=== PATIENT | male | born 1955 | race Caucasian/White ===

== ENCOUNTER → 2021-08-29 09:49 | Outpatient (CLI) | payer OTHER, SELFPAY ==
--- NOTE | 2021-08-29 09:53 | DI.RAD.S_ITS ---
PROCEDURE: XR WRIST RT MIN 3V INDICATIONS: fall TECHNIQUE: 4 views of the wrist were acquired. COMPARISON: [facility], CR, XR HAND RT MIN 3V, 08/29/2021, 9:45. FINDINGS: Bones: Minimally corticated and displaced fracture of the distal radius. This includes vertical fracture fragment along the dorsal aspect of the distal radius as well as a transverse fracture of the metaphysis. There is minimal displacement with mild dorsal angulation. No suspicious bony lesions. Nondisplaced fracture of the ulnar styloid. Scaphoid view: No scaphoid fracture. Soft tissues: Soft tissue swelling throughout the wrist. IMPRESSION: Minimally comminuted, displaced and angulated fracture of the distal radius as well as a nondisplaced fracture of the ulnar styloid. Dictated by: Yevgeniy Wood D.O. on 08/29/2021 at 9:18 Approved by: Yevgeniy Wood D.O. on 08/29/2021 at 9:20
--- NOTE | 2021-08-29 09:53 | DI.RAD.S_ITS ---
PROCEDURE: XR HAND RT MIN 3V INDICATIONS: fall TECHNIQUE: 3 views of the hand(s) acquired. COMPARISON: None. FINDINGS: Bones: There is osseous demineralization. There is a nondisplaced fracture of the ulnar styloid. Minimally displaced and angulated fracture of the distal radius. No dislocation. Mild degenerative changes of the hand most prominent of the 1st metacarpophalangeal joint. Carpal bones are normally aligned. No suspicious bony lesions. Soft tissues: No suspicious soft tissue calcifications. Soft tissue swelling of the wrist. IMPRESSION: Minimally displaced and angulated fracture of the distal radius incompletely evaluated. Nondisplaced fracture of the ulnar styloid. Mild degenerative changes worse at the 1st metacarpophalangeal joint. Dictated by: Yevgeniy Wood D.O. on 08/29/2021 at 9:15 Approved by: Yevgeniy Wood D.O. on 08/29/2021 at 9:18
== END ==
PROVIDERS: Referring Provider Physician Assistant; Visit Provider Physician Assistant
DX: S52.501A Unspecified fracture of the lower end of right radius, initial encounter for closed fracture (principal); S52.614A Nondisplaced fracture of right ulna styloid process, initial encounter for closed fracture; R60.9 Edema, unspecified; W19.XXXA Unspecified fall, initial encounter
CPT/HCPCS: 73110; 73130

== ENCOUNTER 2023-11-09 10:25 | Day surgery (SDC) | payer MEDICARE, OTHER, SELFPAY ==
[2023-11-09 11:05] VITALS: BP 134/77; PULSE 82; RESP 14; TEMP 36.6; O2SAT 99
--- NOTE | 2023-11-09 11:27 | P.HP_ITS ---
History of Present Illness History of Present Illness Date Patient Seen: 11/09/23 Time Patient Seen: 11:28 Chief complaint: Colonoscopy Narrative: Joel is a 68-year-old man here for colonoscopy. His last one was greater than 10 years ago. No family history of colon cancer. [facility] Social History Smoking Status: Never smoker alcohol intake: current Meds Home Medications and Allergies Home Medications Medication Instructions Recorded Confirmed Type [MYCILLIUM] Q DAY ##0 05/02/16 08/29/21 History cyanocobalamin (vitamin B-12) 5,000 mcg sublingual Q DAY ##0 05/02/16 11/09/23 History 5,000 mcg sublingual tablet (Vitamin B-12) ferrous gluconate 236 mg (27 mg 236 mg PO Q DAY ##0 05/02/16 11/09/23 History iron) tablet sodium,potassium,mag sulfates 17.5 See Rx Instructions PO .COMPLEX 10/04/23 Rx gram-3.13 gram-1.6 gram oral soln #354 mL (Suprep Bowel Prep Kit) Allergies Allergy/AdvReac Type Severity Reaction Status Date / Time No Known Drug Allergies Allergy Verified 11/09/23 11:10 Exam Vital Signs (past 8 hours): - 11/09/23 11:05 Temperature 98 F Pulse Rate 82 Respiratory Rate 14 Blood Pressure 134/77 Pulse Oximetry 99 Oxygen Delivery Method Room Air Oxygen Delivery Method Room Air Const General: healthy appearing Resp Effort & Inspection: normal respiratory effort Assessment & Plan Assessment and plan (1) Colon cancer screening: Status: Acute Plan We reviewed the risks and benefits of colonoscopy for colon cancer screening and he would like to proceed. Time-Based Coding :: [TOTAL MINUTES] spent with patient and on the chart (including review of chart, obtaining history, exam, reviewing outside data, placing orders, documenting exam and treatment plan, and counseling patient) on [DATE].
[2023-11-09 12:34] VITALS: BP 107/67; PULSE 70; RESP 14; TEMP 36.6; O2SAT 96
--- NOTE | 2023-11-09 12:34 | PM.OP.COLON ---
Operative Date/Time/Diagnoses Date of procedure: 11/09/23 Time of procedure: 12:34 Pre-op diagnosis: Colon cancer screening Post-op diagnosis: same Procedure & Clinicians Study performed: Colonoscopy Surgeon: Tone Stratton Procedure Notes Procedure in detail: Surgeon: Tone Stratton MD Anesthesia: Ana Anaya MD Procedure: The patient was brought to the endoscopy suite, placed in left lateral decubitus position. The patient was connected to monitoring devices. A time-out was performed. Sedation was administered. Once the patient was adequately sedated, a digital rectal exam was performed and was normal. The scope was then inserted and advanced to the cecum where the appendiceal orifice was identified and photographed. The scope was then slowly withdrawn over greater than 6 minutes. The mucosa was thoroughly inspected. No abnormalities were seen. The scope was retroflexed in the rectum. The scope was straightened and removed. The patient was awakened and brought to recovery. Scope withdrawal time: 7 minutes Sedation time: 11 minutes EBL: 0 Findings: Normal colon Post-procedure Recommendations: Colonoscopy in 10 years Disposition: PACU
[2023-11-09 12:39] VITALS: BP 124/68; PULSE 77; RESP 16; O2SAT 96
[2023-11-09 12:44] VITALS: BP 114/72; PULSE 74; RESP 12; TEMP 36.6; O2SAT 97
[2023-11-09 12:47] VITALS: BP 128/78; PULSE 76; RESP 12; O2SAT 99
[2023-11-09] MEDS: LACTATED RINGERS 1,000 ML 120 ML IV (12:49)
== END 2023-11-09 12:56 | disposition home or self-care (01) ==
PROVIDERS: PCP Family Medicine; Referring Provider Surgery; Visit Provider Surgery
PROC: 0DJD8ZZ Inspection of Lower Intestinal Tract, Via Natural or Artificial Opening Endoscopic (ICD-10-PCS; CPT 45378; principal; 2023-11-09 11:30)
DX: Z12.11 Encounter for screening for malignant neoplasm of colon (principal)
CPT/HCPCS: G0121; J2704

== ENCOUNTER → 2024-04-05 09:15 | Outpatient (CLI) | payer MEDICARE, OTHER, SELFPAY ==
--- NOTE | 2024-04-05 09:17 | DI.US.S_ITS ---
PROCEDURE: US EXTREMITY NONVASC UPPER LT INDICATIONS: MASS LEFT INFERIOR LATERAL SHOULDER TECHNIQUE: Real-time scanning was performed of the left lateral shoulder, with image documentation. COMPARISON: None. 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 MRI shoulder with and without contrast would be recommended for evaluation of enhancing components. Dictated by: Prince Davis M.D. on 04/08/2024 at 9:06 Approved by: Prince Davis M.D. on 04/08/2024 at 9:09
== END ==
PROVIDERS: PCP Family Medicine; Referring Provider Family Medicine; Visit Provider Family Medicine
DX: R22.32 Localized swelling, mass and lump, left upper limb (principal)
CPT/HCPCS: 76705; 76882

== ENCOUNTER 2024-06-04 09:50 | Day surgery (SDC) | payer MEDICARE, OTHER, SELFPAY ==
[2024-05-30 14:10] VITALS: BMI 22.4
--- NOTE | 2024-06-04 | PATH_ITS ---
[facility] Accession Number: [id number] No. of containers..01 Tissue . 01 Material submitted: . axillary tail of breast - LEFT AXILLARY CYST . 01 Diagnosis: LEFT AXILLARY CYST, EXCISION: Epidermal inclusion cyst. Negative for malignancy. [facility] 06/06/2024 0945 Local . 01 Electronically signed: . Ashely Amezcua MD, Pathologist NPI- [id number] . 01 Gross description: . Received in formalin with two patient identifiers and left axillary cyst, is an irregular milton encapsulated soft tissue fragment, 8.7 x 5.2 x 4.5 cm. The external surface is inked blue and sectioning reveals a cystic structure filled with milton grumous material. Communications Marketing Intern sections are submitted in A1. ([id number]) /MRV 06/05/20241811 Local . 01 Pathologist provided ICD-10: L72.3 . 01 CPT . 033671 Specimen Comment: A courtesy copy of this report has been sent to [phone] Performed at: [address] [facility] [address], [place], [place] [id number] MD Pako Sánchez MD Phone: [phone]
[2024-06-04 10:29] VITALS: BP 148/82; PULSE 69; RESP 14; TEMP 37.2; O2SAT 98; BMI 22.4
[2024-06-04] MEDS: ACETAMINOPHEN 325 MG TABLET 975 MG PO (10:44)
[2024-06-04] MEDS: FAMOTIDINE 20 MG/2 ML VIAL IV (10:46)
[2024-06-04] MEDS: LACTATED RINGERS 1,000 ML 42 ML IV (10:46)
--- NOTE | 2024-06-04 11:25 | PM.PREOP ---
Pre-operative Note COVID-19 COVID-19 status: Not tested Interval Note History & Physical reviewed/Exam performed by Physician: Yes Changes to H&P: No ASA Class (for procedural sedation): I
--- NOTE | 2024-06-04 12:17 | SUR.OPER ---
Lateral on a hermosillo bag, head on pillow, gel axillary roll in place, bottom leg bent with gel pad under knee to foot, upper leg straight and supported with pillows. Upper arm supported by pillows and secured over bottom arm to padded arm board. Safety belt at hip, tape over blanket lower legs.
[2024-06-04] MEDS: BUPIVACAINE 0.5% W/ EPI (PF) 30 ML VIAL INJ (12:20)
--- NOTE | 2024-06-04 12:56 | P.OP_ITS ---
Operative Date/Time/Diagnoses Date of procedure: 06/04/24 Time of procedure: 12:56 Pre-op diagnosis: Left posterior axillary subcutaneous cyst Post-op diagnosis: same Procedure & Clinicians Procedure: Excisional biopsy of left posterior axillary subcutaneous cyst Same procedure as scheduled: Yes Surgeon: Tone Stratton Language Therapist: Deni Chairez Anesthesia Type: General Operative Notes Procedure in detail: The patient was brought to the operating room and general LMA anesthesia was induced. He was positioned in the right lateral decubitus position with the left side up. A beanbag was used to secure him. The skin over the left posteri or axillary cyst was prepped and draped in the usual fashion and a time-out was performed. We made a 10 cm incision over the mass. We dissected down to the cyst capsule without rupturing it. We dissected the mass completely free from the surrounding tissue. It measured 8 cm x 5 cm x 4 cm. We then irrigated the wound cavity with some sterile saline. A few bleeders were cauterized. We then closed the incision in layers using multiple interrupted 3-0 Vicryl dermal sutures followed by a running 4-0 Monocryl subcuticular stitch. Steri-Strips and a sterile dressing were applied. EBL: 5 mL Specimen: Left posterior axillary subcutaneous cyst Deni SINGH provided assistance with exposure, retraction and closure of incisions. Post-operative Condition: stable Disposition: PACU
[2024-06-04 13:04] VITALS: BP 141/79; PULSE 78; RESP 12; TEMP 36.3; O2SAT 94
[2024-06-04 13:08] VITALS: BP 139/85; PULSE 89; RESP 12; O2SAT 98
[2024-06-04 13:14] VITALS: BP 133/80; PULSE 87; RESP 21; O2SAT 97
[2024-06-04 13:20] VITALS: BP 136/82; PULSE 79; RESP 15; O2SAT 98
[2024-06-04 13:50] VITALS: BP 135/80; PULSE 79; RESP 16; TEMP 36.4; O2SAT 98
== END 2024-06-04 13:53 | disposition home or self-care (01) ==
PROVIDERS: PCP Family Medicine; Referring Provider Surgery; Visit Provider Surgery
PROC: (CPT 11406; principal; 2024-06-04 11:30)
DX: L72.0 Epidermal cyst (principal); L29.89 Other pruritus; R20.8 Other disturbances of skin sensation
CPT/HCPCS: 11406; 12034; J1100; J2250; J2405; J2704; J3010